=== PATIENT | male | born 1985 | race Caucasian/White ===

== ENCOUNTER 2017-05-29 08:18 | Outpatient (CLI) | payer BC ==
--- NOTE | 2017-05-29 11:21 | MRI ---
MRI BRAIN WITH AND WITHOUT CONTRAST: HISTORY: 31-year-old male with R41.2 memory deficit, G47.30 sleep apnea, R53.83 fatigue, tiredness and R51 hea dache. TECHNIQUE: Multiple sequences obtained in axial, sagittal, and coronal planes; pre and post IV injection of gado linium-based contrast agent: 20 ml of MultiHance. FINDINGS: The ventricles are normal in size and configuration. There is no major intraaxial signal abnormality , restricted diffusion, abnormal intraaxial enhancement, mass, midline shift or any other mass effect , recent intraaxial hemorrhage, or extraaxial fluid collection. IMPRESSION: Normal. sis POS: MARIA ALEJANDRA
[2017-05-29] MEDS ORDERED: Gadobenate Dimeglumine 529 MG/1 ML (20ML VIAL) ONE (14:09)
== END 2017-05-29 08:19 | disposition home or self-care (01) ==
LOC: MRI 08:18
PROVIDERS: ATTEND Student in an Organized Health Care Education/Training Program
DX: G47.30 Sleep apnea, unspecified (principal); R53.83 Other fatigue; R51 Headache; R41.3 Other amnesia
CPT/HCPCS: 70553; 95816; A9579

== ENCOUNTER 2017-07-19 09:05 | Outpatient (CLI) | payer BC | END 2017-07-19 09:06 | disposition home or self-care (01) | LOC: CTENTCT 09:05 | PROVIDERS: ATTEND Otolaryngology Plastic Surgery within the Head & Neck | DX: J32.9 Chronic sinusitis, unspecified (principal) | CPT/HCPCS: 70486 ==

== ENCOUNTER 2018-12-15 23:04 | Emergency (ER) | payer BC | END 2018-12-15 23:33 | disposition home or self-care (01) | LOC: SCSER 23:04 | DX: I10 Essential (primary) hypertension (principal); F41.9 Anxiety disorder, unspecified; F17.210 Nicotine dependence, cigarettes, uncomplicated; Z79.899 Other long term (current) drug therapy | CPT/HCPCS: 99283 ==

== ENCOUNTER 2019-01-07 09:07 | Outpatient (CLI) | payer BC ==
--- NOTE | 2019-01-07 11:00 | RAD ---
CHEST 2 VIEWS: HISTORY: Dyspnea. COMPARISON: 08/03/2015. FINDINGS: Heart size is normal. The lungs are clear. No pneumonia, edema, pleural effusion, or other acute pr ocess. IMPRESSION: No acute intrathoracic disease. POS: OFF
== END 2019-01-07 09:08 | disposition home or self-care (01) ==
LOC: RAD 09:07
PROVIDERS: ATTEND Internal Medicine
DX: R06.00 Dyspnea, unspecified (principal)
CPT/HCPCS: 71046

== ENCOUNTER 2019-01-23 12:35 | Outpatient (CLI) | payer BC ==
--- NOTE | 2019-01-23 13:41 | CT ---
EXAM: CT angiogram of the chest including 3-D rendering: HISTORY: Chronic cough shortness of breath smoking history COMPARISON: None FINDINGS: There is adequate opacification of the pulmonary arteries. Minimal dependent positioning changes with some small posterior bulla. No evidence for aortic aneurysm or dissection. No convincing CT evidence for acute pulmonary embolism. No significant acute pulmonary parenchymal process. No evidence for mediastinal mass or adenopathy. No evidence for pleural or pericardial effusion. Fatty changes in the liver. Small hiatal hernia. IMPRESSION: No convincing CT evidence for acute pulmonary embolism. Other findings as above.
== END 2019-01-23 12:36 | disposition home or self-care (01) ==
LOC: CT 12:35
PROVIDERS: ATTEND Internal Medicine
DX: R05 Cough (principal); K44.9 Diaphragmatic hernia without obstruction or gangrene; K76.0 Fatty (change of) liver, not elsewhere classified; I70.90 Unspecified atherosclerosis
CPT/HCPCS: 71275